=== PATIENT | male | born 1935 | race Caucasian/White ===

== ENCOUNTER → 2023-08-18 12:02 | Outpatient (REF) | payer MEDICARE, SELFPAY ==
[2023-08-18 16:49] LABS: PSA, Total - Diagnostic 0.31 ng/ml (0.0-4.0)
== END ==
LOC: HWLAB 12:02
PROVIDERS: ATTENDING PHYSICIAN Urology
DX: C61 Malignant neoplasm of prostate (principal)
CPT/HCPCS: 36415; 84153

== ENCOUNTER 2025-04-20 11:09 | Inpatient (IN) | payer MEDICARE, SELFPAY ==
--- NOTE | 2025-03-28 12:36 | CM ---
Orthopedic Case Management Assessment
Demographics: Confirmed
Living situation: Patient lives with daughter in a one story home with one step to enter.
Support Person Post Operatively: daughter
History of
VN: yes
SNF: no
Outpatient: Patient has not set up outpatient PT/OT, hospice case manager suggested [facility] which is near patient's home to set up outpatient PT appointment for 04/22.
Has patient purchased required equipment: patient has shower chair and walker in home, patient mentioned that he may purchase a lift chair.
PCP: Monroe Britton
Pharmacy: [facility] in [place]
Post Operative Discharge Plan: Patient is for right total hip KOBI surgery on 04/20/25, plan is for outpatient physical therapy, patient reports that he has not set up his outpatient therapy appointment, hospice case manager reviewed options and [facility]
on [facility], [place] is close to patient's home hospice case manager provided telephone number to [facility] in [place] for patient to set up appointment, (patient admitted that his daughter who is away on vacation arranges his appointments as he is
[facility]). analytic manager's information provided for patient's daughter in case she has any questions.
--- NOTE | 2025-04-06 13:34 | CM ---
Patient to have visiting nursing at discharge PT/OT/VN. [facility] liaison aware
[2025-04-06 13:46] VITALS: BMI 27.9
--- NOTE | 2025-04-06 13:53 | VNURNOTE ---
Addendum entered by Nneka Hdz RN 04/21/25 10:39:
[facility] liaison spoke with pt's daughter Olivia. Discussed [facility] nurse/therapy, visits, schedule. She is agreeable and understands that visits at home will be 2-3 x per week to assess and teach medical management. Daughter is aware that [facility]
will contact them for start of care within a day or two after discharge from . Provided contact number for [facility]. Referral accepted.
Original Note:
Chart reviewed. Pt scheduled for KOBI R JOSPEH on 04/20. [facility] liaison attempted to call patient to inform of VN, PT, OT services. Pt answered but could not hear me. Will follow up after surgery. [facility] referral placed in [facility].
[2025-04-06 14:05] LABS: Hematocrit 43.8 % (39.0-52.0); Hemoglobin 14.9 g/dL (13.0-18.0); Mean Corp Hgb Conc. 34.0 g/dL (33.0-37.0); Mean Corpuscular Volume 91.8 fL (80.0-94.0); Platelet Count 208 10^3/uL (130-400); Red Cell Dist. Width 13.2 % (11.5-14.5)
[2025-04-06 14:22] LABS: ALT (SGPT) 15 U/L (0-50); AST (SGOT) 20 U/L (17-59); Albumin 4.1 g/dl (3.5-5.0); Alkaline Phosphatase 63 U/L (38-126); Blood Urea Nitrogen 30 mg/dl (9-20); Calcium 9.7 mg/dl (8.4-10.2); Carbon Dioxide 32 mmol/L (22-30); Chloride 102 mmol/L (98-107); Estimated Creatinine Clearance 46 ml/min; Glucose 102 mg/dl (70-99); Potassium 4.7 mmol/L (3.5-5.1); Sodium 137 mmol/L (135-145); Total Protein 6.8 g/dl (6.3-8.2); eGFR > 60.00
[2025-04-07 08:24] VITALS: BMI 27.9
[2025-04-07 09:13] LABS: Glycohemoglobin (HgbA1c) 6.2 % (4.0-5.9)
[2025-04-20] VITALS (15 sets, daily range): BP systolic 141–176; BP diastolic 68–93; PULSE 77; O2SAT 99; BMI 27.9
--- NOTE | 2025-04-20 07:53 | W.PN.UPDATE ---
Update Note
Progress Note Update
R hip OA s/p R JOSEPH w/ Dr Odonnell 04/20/25
DVT prophylaxis - ASA, b/l venous foot pumps
HTN - + parameters - monitor BP
PVCs and h/o syncope - monitor on tele
GERD - Pepcid HS
BPH - monitor voids
- Continue home Flomax HS. Additional prn dose also ordered
- Bladder scan/straight cath prn
HLD
H/o syncope
Vertigo
Spinal stenosis
Prostate cancer, 2010, s/p radiation
Prediabetes
Remote tobacco abuse
--- NOTE | 2025-04-20 10:33 | CM ---
Chart reviewed and patient's family would like patient evaluated for rehab after surgery, v's home with outpatient PT/OT.
[2025-04-20] MEDS: TYLENOL 650 MG PO ×3 (11:41→20:03)
[2025-04-20] MEDS: CELEBREX 200 MG PO (11:41)
[2025-04-20] MEDS: NORMOSOL-R/PLASMALYTE-A 1000 IV ×2 (11:50→16:45)
[2025-04-20] MEDS: DILAUDID 0.5 MG IV ×2 (15:22→15:53)
[2025-04-20] MEDS: ZOFRAN 4 MG IV ×2 (15:24→21:49)
[2025-04-20] MEDS: ROXICODONE 5 MG PO ×2 (16:11→22:07)
[2025-04-20] MEDS: ZESTRIL 2.5 MG PO (18:30)
[2025-04-20] MEDS: ASPIRIN 325 MG PO (18:30)
[2025-04-20] MEDS: VITAMIN D3 (cholecalciferol) 50 MCG PO (18:30)
--- NOTE | 2025-04-20 18:39 | OR.RPT ---
Operative Report
Operative Report
Orthopaedic Surgery Operative Note
DATE OF OPERATION: 04/20/2025
PREOPERATIVE DIAGNOSES: Osteoarthritis, right hip
POSTOPERATIVE DIAGNOSES: Same
OPERATION PERFORMED: Right total hip arthroplasty.
SURGEON: Adair Odonnell MD
HARBOR MASTER: Landry Garcia who assisted with patient positioning and retraction
ANESTHESIA: General
COMPLICATIONS: None.
ESTIMATED BLOOD LOSS: 100 mL.
DRAINS: None
SPECIMEN: None
FINDINGS: Advanced articular cartilage wear on the femoral head and acetabulum.
IMPLANTS:
Biomet G7 Acetabular Shell, cluster hole, size 54
Biomet G7 Highly Crosslinked PE Liner, neutral
Pooja M/L Taper femoral stem, size 16.25 with standard neck length and extended offset
Biolox Ceramic Head, size 40mm +0
INDICATIONS: The patient presented to my office with debilitating right hip pain due to osteoarthritis. We reviewed the natural history of this problem, as well as the risks, benefits, and alternatives of various treatment options. The patient
exhausted all nonoperative treatment options and wished to proceed with hip replacement surgery. The patient understood the risks which included, but were not limited to, bleeding, infection, failure to relieve pain, more pain than preop, damage to
blood vessels and nerves, need for reoperation, mechanical failure of the implants, wound healing problems, stiffness, instability, blood clot, pulmonary embolism, myocardial infarction, pneumonia, arrhythmia, CVA, and . The patient accepted
these risks and wished to proceed. All questions were answered, and informed consent was obtained.
PROCEDURE IN DETAIL: The patient was identified in the preoperative holding area. The right hip was identified as the operative site. The patient was taken in the operating room and transferred to the operative table. General anesthesia was
performed. IV antibiotics and tranexamic acid were administered. The patient was placed in the lateral position with Stulberg hip positioners. Axillary roll was placed. The down leg was well padded. All bony prominences were well padded. The
operative limb was prepped and draped in the usual sterile fashion.
Time out was performed. A posterolateral approach to the hip was used. The skin incision was centered over the greater trochanter. This was taken down sharply through subcutaneous tissues. Meticulous hemostasis was achieved throughout the case with
electrocautery. We split the fascia cristina in line with skin incision. I split the gluteus fredi bluntly. We cauterized all crossing vessels as we split it. I palpated the sciatic nerve and made sure it was well posterior in the operative field. It
was protected throughout the case.
I performed a partial bursectomy to identify the short external rotators. The gluteus medius and minimus were identified and retracted anteriorly. I incised the piriformis tendon and conjoint tendon at their insertions. These were tagged for later
repair. I then performed a trapezoidal capsulotomy. The edges were tagged for later repair. I referenced the cut edge of the capsular flap to 2 fixed points on the greater trochanter for assistance with recreation of limb length and offset. I then
dislocated the hip posteriorly. I performed a femoral neck osteotomy approximately 10 mm above the lesser trochanter, as per preoperative templating. The femoral head measured 50 mm in outer diameter. The distance between neck cut and the center of
femoral head was 37.5mm. I placed a curve hohmann retractor over the anterior lip of the acetabulum between the labrum and the anterior hip capsule. A second retractor was placed inferiorly just distal to the transverse acetabular ligament.
Circumferential view of the acetabulum was achieved. I incised the labrum and pulvinar with electrocautery. I started with a 49 mm reamer and reamed down to the medial wall. I then sequentially reamed up to a 53mm reamer. This gave a nice bed of
bleeding bone with excellent column support anteriorly and posteriorly. I impacted the acetabular shell in approximately 40 degrees of abduction and 20 degrees of anteversion. I matched the anteversion of the transverse acetabular ligament. I also
made sure that the anterior rim of the socket was not proud of the anterior wall to minimize the chance of iliopsoas tendinitis. I confirmed the cup was well-seated. I then impacted a neutral liner and confirmed it was well seated with the locking
mechanism.
On the femoral side, I use a box osteotome to open the proximal starting point. I found the canal with a Charnley awl and a lateralizing reamer. I then used the Pooja M/L taper broaches sequentially to prepare the femoral canal. The size 16.25 came
to a stop at the desired level and had excellent axial and rotational stability. We trialed with a trial ball head. The hip was taken through a complete range of motion. It was noted to be stable in extension without impingement. It was stable in
the position of sleep and in flexion with internal rotation. The limb length and offset were checked compared to the capsular flap and was appropriate. The measured length between the neck cut and center of the trial femoral head was 40mm.
I removed the trials. I impacted the femoral implant to match the [place] version. It had excellent axial and rotational stability. Trial ball head was placed, and I reduced the hip and took the hip through range of motion. There was no impingement
in external rotation and extension. Position of sleep was stable. At 90 degrees of flexion and slight adduction, the hip could be internally rotated to 90 degrees with no subluxation. I palpated the sciatic nerve, which was tension free and
unharmed. Based on our capsular flap measurement, we had restored the offset and leg length. The trial ball head was removed, and the final ball head was impacted onto a clean and dry Amanda taper. The hip was reduced.
A dilute betadine soak was performed for approximately 3 minutes, and then the hip was copiously irrigated. I repaired the capsule, piraformis, and conjoint tendon with #2 Ethibond to drill holes in the greater trochanter. Local anesthetic was
injected. The fascia cristina was closed with #1 PDS in running fashion. The subcutaneous tissues were closed with 2-0 PDS in running fashion. The skin was reapproximated with 3-0 Monocryl subcuticular suture. I placed a Prineo dressing followed by a
Mepilex Ag dressing. The patient awoke from anesthesia without difficulty. Sponge and instrument counts were correct x2 at the end of the case.
I was present and participated in the entire procedure. The patient was sent to the recovery room in stable condition.
Markos Odonnell MD
[2025-04-20] MEDS: ANCEF 5 IV (20:02)
[2025-04-20] MEDS: SENOKOT 17.2 MG PO (20:03)
[2025-04-20] MEDS: BACTROBAN 2% OINTMENT 1 APPLIC NASAL (20:03)
[2025-04-20] MEDS: COLACE 100 MG PO (20:03)
[2025-04-20] MEDS: DECADRON 4 MG PO (20:03)
[2025-04-20] MEDS: FLOMAX 0.4 MG PO (22:06)
[2025-04-20] MEDS: PEPCID 20 MG PO (22:06)
[2025-04-20] MEDS: NEURONTIN 300 MG PO (22:06)
[2025-04-20] MEDS: LIPITOR 20 MG PO (22:09)
[2025-04-21] MEDS: TYLENOL 650 MG PO ×2 (00:32→09:56)
[2025-04-21 03:10] VITALS: BP 148/74
[2025-04-21] MEDS: ROXICODONE 5 MG PO ×2 (03:10→10:47)
[2025-04-21] MEDS: ANCEF 5 IV (03:11)
[2025-04-21] MEDS: TYLENOL PO (04:16)
--- NOTE | 2025-04-21 05:02 | PTCARENOTE ---
Pt able to stand w/assist and RW to void. Verbalizes adequate pain control, pain medication encouraged to increase mobility (refer to MAR). Appears to be resting when undisturbed. Rings appropriately, call jesus alberto w/in reach.
[2025-04-21 07:20] VITALS: BP 136/72
--- NOTE | 2025-04-21 08:15 | CM ---
manager mining reviewed patient's chart and patient lives with daughter, Olivia, in a one story home, one step to enter, patient's daughter Gris called asking for patient to be evaluation for rehab, correctional case manager will follow with patient progress
today to review plan for patient.
Plan; To follow with patient progress in PT, [facility] is also following patient.
[2025-04-21] MEDS: VITAMIN D3 (cholecalciferol) 50 MCG PO (09:56)
[2025-04-21] MEDS: ASPIRIN 325 MG PO (09:56)
[2025-04-21] MEDS: CELEBREX 200 MG PO (09:56)
[2025-04-21] MEDS: SENOKOT 17.2 MG PO (09:56)
[2025-04-21] MEDS: BACTROBAN 2% OINTMENT 1 APPLIC NASAL (09:57)
[2025-04-21] MEDS: COLACE 100 MG PO (09:57)
[2025-04-21] MEDS: DECADRON 4 MG PO (09:58)
[2025-04-21] MEDS: ZESTRIL PO (09:58)
[2025-04-21 10:50] VITALS: BP 108/60; BP 117/55; BP 119/61; PULSE 78; O2SAT 94
[2025-04-21] MEDS: ZOFRAN 4 MG IV (10:50)
[2025-04-21 11:10] VITALS: BP 123/64
--- NOTE | 2025-04-21 11:11 | W.PN.ORTHO ---
Today's Communication / Plan
-
d/c
Assessment
.
Distal Motor Intact: Yes
Dressing:
Clean, dry and intact.
Assessment:
HTN - + parameters - BP good range
PVCs and h/o syncope - stable on tele
GERD - Pepcid HS
BPH - monitor voids
- Continue home Flomax HS. Additional prn dose also ordered
- Bladder scan/straight cath prn
- voiding well
HLD
H/o syncope
Vertigo
Spinal stenosis
Prostate cancer, 2010, s/p radiation
Prediabetes
Remote tobacco abuse
Plan
.
Surgery / Date: R JOSEPH Dr Odonnell 04/20/25
DVT Prophylaxis: Aspirin
Activity:
Out of bed.
PT/OT
Discharge Plan: Home w/ VN
Subjective
.
.:
Patient resting comfortably.
Vital Signs and Labs
.
Vital Signs and Labs:
Lab Results
04/06/25 13:06
04/06/25 13:05
Temp Pulse Resp BP Pulse Ox
97.7 F 78 16 119/61 93
04/21/25 07:20 04/21/25 09:58 04/21/25 07:20 04/21/25 09:58 04/21/25 07:20
Non-invasive Hgb result: 14.8
Physical Exam
-
HEENT: No pallor, cyanosis, or jaundice. Throat clear.
NECK: Supple. No JVD.
RESPIRATORY: Lungs clear to auscultation.
CVS: S1, S2 normal. RRR.� No murmur, rub or gallop.
ABDOMEN: Soft, non-tender. No distension. BS+/normal.
EXTREMITIES: strength equal, no calf pain with palpation
TURKEY ROLL MAKER: AOx3. No focal deficits. slat basket maker grossly intact
--- NOTE | 2025-04-21 11:16 | W.DS.TRANS ---
DC Summary - Computer Repair Technician
-
Discharge Instructions:
Sleep Apnea Risk High
Discharge Diagnosis/Procedures R JOSEPH Dr Odonnell 04/20/25
Diet As tolerated
Activity With Walker
Driving Restrictions No driving
Bathing Restrictions OK to Shower
Other Services PT,VN,OT
Instructions:
Stand-Alone Forms: Total Hip/Knee Replacement D/C
Changes to Home Medications: Yes
Discharge Medications:
DC Medications w/original date entered in [employer]
glucosamine HCl 1,500 mg tablet 1,500 mg PO BID Supplement 04/04/14
Held on 04/21/25. Instructions: Resume on 04/29/25.
lisinopril 2.5 mg tablet 2.5 mg PO DAILY Blood pressure 08/30/20
meclizine 25 mg tablet 25 mg PO DAILY PRN Vertigo 08/30/20
Cbd/Thc 1 gummy PO PRN PRN pain 04/04/25
Medical Marijuana 1 dose inhalation PRN PRN Pain 04/04/25
atorvastatin 20 mg tablet 20 mg PO HS High Cholesterol 04/04/25
cholecalciferol (vitamin D3) 50 mcg (2,000 unit) capsule (Vitamin D3) 50 mcg PO DAILY Supplement 04/04/25
iwlbgqcsnsyl-qfxyjwit-onvjru tablet 1 tab PO DAILY Supplement 04/04/25
Held on 04/21/25. Instructions: Resume on 04/29/25.
omega 2-eya-ysy-fish oil 1,200 mg (144 mg-216 mg) capsule (Fish Oil) 1,200 cap PO QPM Supplement 04/04/25
Held on 04/21/25. Instructions: Resume on 04/29/25.
tamsulosin 0.4 mg capsule 0.4 mg PO HS Urinary Issue 04/04/25
celecoxib 200 mg capsule 200 mg PO DAILY Anti-inflammatory #14 caps 04/06/25
dexamethasone 4 mg tablet 4 mg PO BID inflammation #6 tabs 04/06/25
famotidine 20 mg tablet 20 mg PO HS GI prophylaxis #30 tabs 04/06/25
gabapentin 300 mg capsule 300 mg PO HS sleep/pain #10 caps 04/06/25
mupirocin 2 % topical ointment 1 applic topical BID infection prevention #1 tube 04/06/25
ondansetron 4 mg disintegrating tablet 4 mg PO Q6H PRN n/v #20 tabs 04/06/25
oxycodone 5 mg tablet 5 mg PO Q6H PRN 1 tab moderate pain, 2 tabs severe pain #30 tabs 04/06/25
acetaminophen 500 mg tablet 1,000 mg (2 x 500 mg) PO QID #0 tabs 04/21/25
aspirin 325 mg tablet 325 mg PO DAILY blood clot prevention #1 tab 04/21/25
docusate sodium 100 mg capsule (Colace) 100 mg PO BID stool softner #1 cap 04/21/25
magnesium hydroxide 400 mg/5 mL oral suspension (Milk of Magnesia) 30 ml PO HS PRN constipation #1 mL 04/21/25
sennosides 8.6 mg tablet (Senokot) 17.2 mg (2 x 8.6 mg) PO BID laxative #2 tabs 04/21/25
Home Medication Changes
celecoxib 200 mg capsule 200 mg PO DAILY Anti-inflammatory #14 caps 04/06/25
dexamethasone 4 mg tablet 4 mg PO BID inflammation #6 tabs 04/06/25
famotidine 20 mg tablet 20 mg PO HS GI prophylaxis #30 tabs 04/06/25
gabapentin 300 mg capsule 300 mg PO HS sleep/pain #10 caps 04/06/25
mupirocin 2 % topical ointment 1 applic topical BID infection prevention #1 tube 04/06/25
ondansetron 4 mg disintegrating tablet 4 mg PO Q6H PRN n/v #20 tabs 04/06/25
oxycodone 5 mg tablet 5 mg PO Q6H PRN 1 tab moderate pain, 2 tabs severe pain #30 tabs 04/06/25
acetaminophen 500 mg tablet 1,000 mg (2 x 500 mg) PO QID #0 tabs 04/21/25
aspirin 325 mg tablet 325 mg PO DAILY blood clot prevention #1 tab 04/21/25
docusate sodium 100 mg capsule (Colace) 100 mg PO BID stool softner #1 cap 04/21/25
magnesium hydroxide 400 mg/5 mL oral suspension (Milk of Magnesia) 30 ml PO HS PRN constipation #1 mL 04/21/25
sennosides 8.6 mg tablet (Senokot) 17.2 mg (2 x 8.6 mg) PO BID laxative #2 tabs 04/21/25
Pending Results: No
[2025-04-21 11:48] VITALS: BP 123/64; PULSE 71; O2SAT 94
== END 2025-04-21 12:30 | disposition home health service (06) | DRG 470 ==
LOC: 2 SOUTH 11:09
PROVIDERS: ADMITTING PHYSICIAN Orthopaedic Surgery; FAMILY PHYSICIAN Family Medicine; REFERRING PHYSICIAN Internal Medicine Cardiovascular Disease
PROC: 0SR903A Replacement of Right Hip Joint with Ceramic Synthetic Substitute, Uncemented, Open Approach (ICD-10-PCS; 2025-04-20)
DX: M16.11 Unilateral primary osteoarthritis, right hip (principal); I10 Essential (primary) hypertension; K21.9 Gastro-esophageal reflux disease without esophagitis; N40.0 Benign prostatic hyperplasia without lower urinary tract symptoms; E78.5 Hyperlipidemia, unspecified; M48.00 Spinal stenosis, site unspecified; Z85.46 Personal history of malignant neoplasm of prostate; Z87.891 Personal history of nicotine dependence; R73.03 Prediabetes
CPT/HCPCS: 36415; 73502; 80053; 83036; 85027; 87070; 97110; 97116; 97162; 97167; 97535; C1776